=== PATIENT | female | born 1960 | race Caucasian/White ===

== ENCOUNTER 2017-02-26 19:48 | Emergency (ER) | payer OTHER ==
[~2017-02-26] VITALS: Ht 154.9 cm; Wt 90.7 kg
[~2017-02-26 19:48] MED LIST: AMOXICILLIN500 M2 PO; CILOXAN 5 ML5 ML OT; DARVOCET N 1001 TAB PO; LEVOFLOXACIN500 MG PO; MOTRIN800 MG PO; PERCOCET 325 MG1 TA7 PO; SYNTHROID0.125 MG PO; ULTRAM100 MG PO; ZYRTEC10 MG PO
[2017-02-26 20:00] VITALS: BP 135/73
[2017-02-26] MEDS ORDERED: ANAPROX DS550 MG PO (20:10)
== END 2017-02-26 20:34 | disposition home or self-care (01) ==
LOC: ED 19:48
DX: S80.01XA Contusion of right knee, initial encounter (principal); M13.862 Other specified arthritis, left knee; M13.861 Other specified arthritis, right knee; F17.200 Nicotine dependence, unspecified, uncomplicated; Z79.899 Other long term (current) drug therapy; V49.59XA Passenger injured in collision with other motor vehicles in traffic accident, initial encounter; Y93.89 Activity, other specified; Y92.413 State road as the place of occurrence of the external cause; Y99.8 Other external cause status

== ENCOUNTER 2017-12-12 17:19 | Emergency (ER) | payer OTHER ==
[~2017-12-12] VITALS: Ht 154.9 cm; Wt 99.8 kg
[~2017-12-12 17:19] MED LIST changes: +ANAPROX DS550 MG PO
[2017-12-12 17:25] VITALS: BP 130/75
[2017-12-12] MEDS ORDERED: MEDROL DOSEPAK4 MG PO (19:13)
== END 2017-12-12 19:15 | disposition home or self-care (01) ==
LOC: ED 17:19
DX: M25.512 Pain in left shoulder (principal); Z98.51 Tubal ligation status; Z90.710 Acquired absence of both cervix and uterus; Z79.899 Other long term (current) drug therapy

== ENCOUNTER → 2019-01-23 | Outpatient (CLI) | payer OTHER ==
[~2019-01-23] MED LIST changes: +MEDROL DOSEPAK4 MG PO
[2019-01-23 09:07] LABS: BASO # 0.1 10*3/uL (0.0-0.1); BASO % 1.1 % (0.0-1.0); EOS # 0.3 10*3/uL (0.0-0.4); EOS % 3.1 % (1.0-4.0); HEMATOCRIT 46.6 % (37.0-47.0); HEMOGLOBIN 15.2 g/dl (12.0-16.0); LYMPH # 2.9 10*3/uL (1.3-4.4); LYMPH % 27.3 % (27.0-41.0); MEAN CELL VOLUME 92.3 fl (81.0-99.0); MEAN CORPUSCULAR HGB 30.1 pg (27.0-31.0); MEAN CORPUSCULAR HGB CONC 32.6 g/dl (33.0-37.0); MEAN PLATELET VOLUME 9.8 fl (9.6-12.3); MONO # 0.6 10*3/uL (0.1-1.0); MONO % 5.4 % (3.0-9.0); NEUT # 6.6 10*3/uL (2.3-7.9); NEUT % 62.7 % (47.0-73.0); PLATELET COUNT AUTOMATED 308 10*3/uL (130-400); RED BLOOD COUNT 5.05 10*6/uL (4.10-5.10); RED CELL DISTRI WIDTH 13.8 % (0-14.5); WHITE BLOOD COUNT 10.5 10*3/uL (4.8-10.8)
[2019-01-23 09:36] LABS: ALBUMIN 3.5 gm/dl (3.1-4.5); BUN 16 mg/dl (7-24); CHLORIDE 106 mmol/L (98-107); POTASSIUM 4.2 mmol/L (3.5-5.1); SODIUM 141 mmol/L (136-145)
[2019-01-23 09:43] LABS: ALKALINE PHOSPHATASE 69 U/L (45-117); CHOLESTEROL 253 mg/dL (<200); CREATININE 0.92 mg/dL (0.55-1.02); FREE T4 0.68 ng/dl (0.76-1.46); HDL CHOLESTEROL 51 mg/dl (40-60); LDL CHOLESTEROL 167 mg/dL (9-159); SGOT/AST 13 IU/L (3-35); SGPT/ALT 19 U/L (12-78); TOTAL PROTEIN 7.3 gm/dL (6.4-8.2); TRIGLYCERIDES 176 mg/dl (<150); VLDL CHOLESTEROL 35 mg/dL (6-40)
[2019-01-23 10:33] LABS: VITAMIN D, 25-HYDROXY 22.9 ng/mL (30-100)
== END | disposition home or self-care (01) ==
LOC: LAB 08:33
PROVIDERS: Internal Medicine
DX: Z13.220 Encounter for screening for lipoid disorders (principal); Z13.21 Encounter for screening for nutritional disorder; E78.2 Mixed hyperlipidemia; E11.65 Type 2 diabetes mellitus with hyperglycemia; E03.9 Hypothyroidism, unspecified; E55.9 Vitamin D deficiency, unspecified

== ENCOUNTER 2019-06-14 18:35 | Emergency (ER) | payer OTHER ==
[~2019-06-14] VITALS: Ht 154.9 cm; Wt 99.8 kg
[2019-06-14 18:38] VITALS: BP 122/40
[2019-06-14 19:15] LABS: BASO # 0.1 10*3/uL (0.0-0.1); EOS # 0.4 10*3/uL (0.0-0.4); EOS % 4.1 % (1.0-4.0); HEMATOCRIT 43.8 % (37.0-47.0); HEMOGLOBIN 14.3 g/dl (12.0-16.0); LYMPH # 3.2 10*3/uL (1.3-4.4); LYMPH % 30.6 % (27.0-41.0); MEAN CELL VOLUME 92.2 fl (81.0-99.0); MEAN CORPUSCULAR HGB 30.1 pg (27.0-31.0); MEAN CORPUSCULAR HGB CONC 32.6 g/dl (33.0-37.0); MEAN PLATELET VOLUME 9.9 fl (9.6-12.3); MONO # 0.6 10*3/uL (0.1-1.0); NEUT % 57.8 % (47.0-73.0); PLATELET COUNT AUTOMATED 296 10*3/uL (130-400); RED BLOOD COUNT 4.75 10*6/uL (4.10-5.10); RED CELL DISTRI WIDTH 14.3 % (0-14.5); WHITE BLOOD COUNT 10.3 10*3/uL (4.8-10.8)
[2019-06-14 19:31] LABS: ALBUMIN 3.3 gm/dl (3.1-4.5); ALKALINE PHOSPHATASE 61 U/L (45-117); BUN 15 mg/dl (7-24); CHLORIDE 106 mmol/L (98-107); CREATININE 0.96 mg/dL (0.55-1.02); SGOT/AST 13 IU/L (3-35); SGPT/ALT 11 U/L (12-78); SODIUM 139 mmol/L (136-145); TOTAL PROTEIN 7.3 gm/dL (6.4-8.2)
== END 2019-06-14 20:31 | disposition home or self-care (01) ==
LOC: ED 18:35
PROVIDERS: Nurse Practitioner Family
DX: M25.561 Pain in right knee (principal); E03.9 Hypothyroidism, unspecified; M19.90 Unspecified osteoarthritis, unspecified site; F17.200 Nicotine dependence, unspecified, uncomplicated; Z79.899 Other long term (current) drug therapy; X50.1XXA Overexertion from prolonged static or awkward postures, initial encounter; Y93.89 Activity, other specified; Y92.89 Other specified places as the place of occurrence of the external cause; Y99.8 Other external cause status

== ENCOUNTER → 2020-12-04 | Outpatient (CLI) | payer OTHER ==
[2020-12-04 14:02] LABS: BASO # 0.1 10*3/uL (0.0-0.1); BASO % 1.2 % (0.0-1.0); EOS # 0.4 10*3/uL (0.0-0.4); EOS % 3.6 % (1.0-4.0); HEMATOCRIT 47.4 % (37.0-47.0); LYMPH % 26.2 % (27.0-41.0); MEAN CELL VOLUME 90.1 fl (81.0-99.0); MEAN CORPUSCULAR HGB 29.1 pg (27.0-31.0); MEAN CORPUSCULAR HGB CONC 32.3 g/dl (33.0-37.0); MEAN PLATELET VOLUME 9.7 fl (9.6-12.3); MONO # 0.6 10*3/uL (0.1-1.0); MONO % 5.6 % (3.0-9.0); NEUT # 7.1 10*3/uL (2.3-7.9); NEUT % 62.9 % (47.0-73.0); PLATELET COUNT AUTOMATED 338 10*3/uL (130-400); RED BLOOD COUNT 5.26 10*6/uL (4.10-5.10); RED CELL DISTRI WIDTH 14.2 % (0-14.5); WHITE BLOOD COUNT 11.2 10*3/uL (4.8-10.8)
[2020-12-04 14:19] LABS: ALBUMIN 3.2 gm/dl (3.1-4.5); ALKALINE PHOSPHATASE 74 U/L (45-117); BUN 16 mg/dl (7-24); CHLORIDE 107 mmol/L (98-107); CHOLESTEROL 226 mg/dL (<200); CREATININE 0.98 mg/dL (0.55-1.02); HDL CHOLESTEROL 48 mg/dl (40-60); LDL CHOLESTEROL 134 mg/dL (9-159); POTASSIUM 4.4 mmol/L (3.5-5.1); SGOT/AST 12 IU/L (3-35); SGPT/ALT 16 U/L (12-78); SODIUM 140 mmol/L (136-145); TOTAL PROTEIN 7.2 gm/dL (6.4-8.2); TRIGLYCERIDES 222 mg/dl (<150); VLDL CHOLESTEROL 44 mg/dL (6-40)
[2020-12-04 14:21] LABS: FREE T4 0.65 ng/dl (0.76-1.46)
[2020-12-04 16:10] LABS: VITAMIN D, 25-HYDROXY 11.2 ng/mL (30-100)
== END | disposition home or self-care (01) ==
LOC: LAB 13:32
PROVIDERS: ATTEND Internal Medicine
DX: Z00.00 Encounter for general adult medical examination without abnormal findings (principal); E11.65 Type 2 diabetes mellitus with hyperglycemia; R53.83 Other fatigue; E55.9 Vitamin D deficiency, unspecified; E03.9 Hypothyroidism, unspecified; I10 Essential (primary) hypertension; E78.2 Mixed hyperlipidemia

== ENCOUNTER → 2020-12-11 | Outpatient (CLI) | payer OTHER | END | disposition home or self-care (01) | LOC: CARD 00:11 | PROVIDERS: ATTEND Internal Medicine | DX: I51.7 Cardiomegaly (principal) ==

== ENCOUNTER 2021-05-08 12:18 | Emergency (ER) | payer OTHER ==
[~2021-05-08] VITALS: Ht 154.9 cm; Wt 113.4 kg
[2021-05-08 12:48] VITALS: BP 119/67
[2021-05-08 13:16] LABS: BASO # 0.1 10*3/uL (0.0-0.1); BASO % 0.6 % (0.0-1.0); EOS # 0.2 10*3/uL (0.0-0.4); EOS % 1.7 % (1.0-4.0); HEMATOCRIT 47.1 % (37.0-47.0); LYMPH # 1.8 10*3/uL (1.3-4.4); LYMPH % 20.9 % (27.0-41.0); MEAN CELL VOLUME 90.2 fl (81.0-99.0); MEAN CORPUSCULAR HGB 28.7 pg (27.0-31.0); MEAN CORPUSCULAR HGB CONC 31.8 g/dl (33.0-37.0); MEAN PLATELET VOLUME 9.6 fl (9.6-12.3); MONO # 0.6 10*3/uL (0.1-1.0); MONO % 6.9 % (3.0-9.0); NEUT # 5.9 10*3/uL (2.3-7.9); NEUT % 68.9 % (47.0-73.0); PLATELET COUNT AUTOMATED 242 10*3/uL (130-400); RED BLOOD COUNT 5.22 10*6/uL (4.10-5.10); RED CELL DISTRI WIDTH 14.2 % (0-14.5); WHITE BLOOD COUNT 8.6 10*3/uL (4.8-10.8)
[2021-05-08 13:32] LABS: ALBUMIN 3.3 gm/dl (3.1-4.5); ALKALINE PHOSPHATASE 70 U/L (45-117); BUN 10 mg/dl (7-24); CHLORIDE 105 mmol/L (98-107); CREATININE 0.96 mg/dL (0.55-1.02); POTASSIUM 4.1 mmol/L (3.5-5.1); SGOT/AST 21 IU/L (3-35); SGPT/ALT 24 U/L (12-78); SODIUM 138 mmol/L (136-145); TOTAL PROTEIN 7.4 gm/dL (6.4-8.2)
[2021-05-08] MEDS ORDERED: DOXYCYCLINE100 M3 PO (14:28)
== END 2021-05-08 14:32 | disposition home or self-care (01) ==
LOC: ED 12:18
PROVIDERS: Student in an Organized Health Care Education/Training Program
DX: U07.1 COVID-19 (principal); J44.1 Chronic obstructive pulmonary disease with (acute) exacerbation; J32.9 Chronic sinusitis, unspecified; Z79.899 Other long term (current) drug therapy

== ENCOUNTER 2022-01-16 17:52 | Inpatient (IN) | payer OTHER ==
[~2022-01-16] VITALS: Ht 154.9 cm; Wt 115.8 kg
[~2022-01-16 17:52] MED LIST changes: +DOXYCYCLINE100 M3 PO
[2022-01-16 17:57] VITALS: BP 113/64
[2022-01-16 18:23] LABS: BASO # 0.1 10*3/uL (0.0-0.1); EOS # 0.3 10*3/uL (0.0-0.4); EOS % 3.5 % (1.0-4.0); LYMPH # 3.2 10*3/uL (1.3-4.4); LYMPH % 32.2 % (27.0-41.0); MEAN CELL VOLUME 89.3 fl (81.0-99.0); MEAN CORPUSCULAR HGB CONC 32.4 g/dl (33.0-37.0); MEAN PLATELET VOLUME 9.7 fl (9.6-12.3); MONO # 0.8 10*3/uL (0.1-1.0); MONO % 8.1 % (3.0-9.0); NEUT # 5.3 10*3/uL (2.3-7.9); NEUT % 54.6 % (47.0-73.0); PLATELET COUNT AUTOMATED 313 10*3/uL (130-400); RED BLOOD COUNT 5.04 10*6/uL (4.10-5.10); WHITE BLOOD COUNT 9.8 10*3/uL (4.8-10.8)
[2022-01-16 18:39] LABS: ALKALINE PHOSPHATASE 74 U/L (45-117); BUN 15 mg/dl (7-24); CHLORIDE 105 mmol/L (98-107); CREATININE 0.91 mg/dL (0.55-1.02); POTASSIUM 4.6 mmol/L (3.5-5.1); SGOT/AST 15 IU/L (3-35); SGPT/ALT 16 U/L (12-78); SODIUM 139 mmol/L (136-145); TOTAL PROTEIN 6.9 gm/dL (6.4-8.2)
[2022-01-16 19:32] VITALS: BP 126/64
[2022-01-16 20:40] VITALS: BP 128/67
[2022-01-16 21:10] LABS: BILIRUBIN Negative (Negative); BLOOD Negative (Negative); CLARITY Clear (Clear); COLOR Yellow (Yellow); GLUCOSE Negative (Negative); KETONE Negative (Negative); LEUKO ESTERASE Negative (Negative); NITRITE Negative (Negative); PH 5.5 (4.5-8.0); UROBILINOGEN 0.2 E.U./dl (0.0-1.0)
[2022-01-16 21:23] LABS: RBC 0-2 rbc/hpf (0-2); WBC 0-2 wbc/hpf (0-5)
[2022-01-16 23:17] VITALS: BP 133/75
[2022-01-17] VITALS: BP 133/75
[2022-01-17 08:00] VITALS: BP 96/48; BP 98/48
[2022-01-17 12:00] VITALS: BP 118/68
[2022-01-17 16:00] VITALS: BP 110/68
[2022-01-17 20:00] VITALS: BP 112/48
[2022-01-18] VITALS: BP 102/52
[2022-01-18 08:00] VITALS: BP 123/62
[2022-01-18] MEDS ORDERED: MECLIZINE HCL25 M2 PO (11:13)
== END 2022-01-18 15:00 | disposition home or self-care (01) | DRG 149 ==
LOC: ED 17:52 → 4E 23:00 → EDHOLD 23:00 → 4E 23:00
PROVIDERS: Emergency Medicine; Student in an Organized Health Care Education/Training Program; ADMIT Internal Medicine; ATTEND Internal Medicine
DX: H81.12 Benign paroxysmal vertigo, left ear (principal); Z68.42 Body mass index [BMI] 45.0-49.9, adult; E66.01 Morbid (severe) obesity due to excess calories; F41.1 Generalized anxiety disorder; E03.9 Hypothyroidism, unspecified; J43.2 Centrilobular emphysema; R26.81 Unsteadiness on feet; Z90.710 Acquired absence of both cervix and uterus; Z90.721 Acquired absence of ovaries, unilateral

== ENCOUNTER 2022-10-18 13:01 | Emergency (ER) | payer OTHER ==
[~2022-10-18] VITALS: Wt 102.1 kg
[~2022-10-18 13:01] MED LIST changes: +MECLIZINE HCL25 M2 PO
[2022-10-18 13:48] LABS: BASO # 0.1 10*3/uL (0.0-0.1); BASO % 0.8 % (0.0-1.0); EOS # 0.3 10*3/uL (0.0-0.4); EOS % 2.9 % (1.0-4.0); HEMATOCRIT 47.4 % (37.0-47.0); LYMPH # 1.9 10*3/uL (1.3-4.4); LYMPH % 17.3 % (27.0-41.0); MEAN CELL VOLUME 91.2 fl (81.0-99.0); MEAN CORPUSCULAR HGB 28.7 pg (27.0-31.0); MEAN CORPUSCULAR HGB CONC 31.4 g/dl (33.0-37.0); MEAN PLATELET VOLUME 9.8 fl (9.6-12.3); MONO # 0.6 10*3/uL (0.1-1.0); MONO % 5.4 % (3.0-9.0); NEUT # 8.1 10*3/uL (2.3-7.9); NEUT % 73.1 % (47.0-73.0); PLATELET COUNT AUTOMATED 303 10*3/uL (130-400); RED CELL DISTRI WIDTH 14.2 % (0-14.5)
[2022-10-18 14:03] LABS: ALKALINE PHOSPHATASE 73 U/L (46-116); BUN 12 mg/dl (9-23); CHLORIDE 101 mmol/L (98-107); POTASSIUM 4.3 mmol/L (3.4-5.1); SGPT/ALT 13 U/L (10-49); TOTAL PROTEIN 6.7 gm/dL (6.0-8.0)
[2022-10-18 15:22] VITALS: BP 109/49
[2022-10-18] MEDS ORDERED: MEDI-MECLIZINE25 MG PO (21:59)
== END 2022-10-18 22:06 | disposition home or self-care (01) ==
LOC: ED 13:01
PROVIDERS: Student in an Organized Health Care Education/Training Program
DX: R42 Dizziness and giddiness (principal); Z98.51 Tubal ligation status; Z90.89 Acquired absence of other organs; Z90.710 Acquired absence of both cervix and uterus; Z98.890 Other specified postprocedural states

== ENCOUNTER 2023-02-17 15:35 | Inpatient (IN) | payer OTHER, MEDICAID ==
[~2023-02-17] VITALS: Ht 154.9 cm; Wt 122.0 kg
[2023-02-17 15:35] VITALS: BP 93/53
[~2023-02-17 15:35] MED LIST changes: +MEDI-MECLIZINE25 MG PO
[2023-02-17 15:49] VITALS: BP 100/47
[2023-02-17] MEDS ORDERED: SYNTHROID,LEV125 MCG PO (15:53)
[2023-02-17 16:38] LABS: BASO # 0.1 10*3/uL (0.0-0.1); BASO % 1.1 % (0.0-1.0); EOS # 0.3 10*3/uL (0.0-0.4); EOS % 2.9 % (1.0-4.0); HEMATOCRIT 45.7 % (37.0-47.0); LYMPH # 2.2 10*3/uL (1.3-4.4); LYMPH % 23.8 % (27.0-41.0); MEAN CELL VOLUME 89.4 fl (81.0-99.0); MEAN CORPUSCULAR HGB 28.6 pg (27.0-31.0); MEAN CORPUSCULAR HGB CONC 31.9 g/dl (33.0-37.0); MEAN PLATELET VOLUME 9.5 fl (9.6-12.3); MONO # 0.5 10*3/uL (0.1-1.0); MONO % 5.2 % (3.0-9.0); NEUT # 6.1 10*3/uL (2.3-7.9); NEUT % 66.7 % (47.0-73.0); PLATELET COUNT AUTOMATED 327 10*3/uL (130-400); RED BLOOD COUNT 5.11 10*6/uL (4.10-5.10); RED CELL DISTRI WIDTH 14.1 % (0-14.5); WHITE BLOOD COUNT 9.1 10*3/uL (4.8-10.8)
[2023-02-17 17:13] LABS: ALKALINE PHOSPHATASE 72 U/L (46-116); BUN 10 mg/dl (9-23); CHLORIDE 105 mmol/L (98-107); POTASSIUM 4.1 mmol/L (3.4-5.1); SGPT/ALT 10 U/L (10-49); TOTAL PROTEIN 6.4 gm/dL (6.0-8.0)
[2023-02-17 19:33] VITALS: BP 97/45
[2023-02-17 22:30] VITALS: BP 122/53
[2023-02-18 06:12] LABS: FREE T4 0.74 ng/dl (0.89-1.76); THYROID STIM HORMONE (HS) 8.281 uIU/ml (0.550-4.780)
[2023-02-18 08:00] VITALS: BP 122/70
[2023-02-18 12:00] VITALS: BP 133/57
[2023-02-18 16:00] VITALS: BP 147/78
[2023-02-18 20:00] VITALS: BP 132/58
[2023-02-19] VITALS: BP 133/56
[2023-02-19] MEDS ORDERED: NICOTROL10 MG INH (07:04)
[2023-02-19] MEDS ORDERED: LEVOTHYROXINE125 MCG PO (07:04)
[2023-02-19] MEDS ORDERED: ATORVASTATIN CA20 M1 PO (07:04)
[2023-02-19] MEDS ORDERED: ASPIRIN CHILDRE81 MG PO (07:04)
[2023-02-19 08:00] VITALS: BP 125/67
== END 2023-02-19 17:05 | disposition home or self-care (01) | DRG 309 ==
LOC: ED 15:35 → 4E 18:26 → EDHOLD 18:26 → 4E 22:01
PROVIDERS: Internal Medicine; ADMIT Internal Medicine; ATTEND Internal Medicine
DX: I47.1 Supraventricular tachycardia (principal); E44.1 Mild protein-calorie malnutrition; Z68.43 Body mass index [BMI] 50.0-59.9, adult; I44.1 Atrioventricular block, second degree; E66.01 Morbid (severe) obesity due to excess calories; E03.9 Hypothyroidism, unspecified; G47.33 Obstructive sleep apnea (adult) (pediatric); F17.210 Nicotine dependence, cigarettes, uncomplicated; J44.9 Chronic obstructive pulmonary disease, unspecified; F41.1 Generalized anxiety disorder; Z71.6 Tobacco abuse counseling

== ENCOUNTER 2023-02-26 16:04 | Emergency (ER) | payer MEDICAID ==
[~2023-02-26] VITALS: Ht 12.7 cm; Wt 113.4 kg
[~2023-02-26 16:04] MED LIST changes: +ASPIRIN CHILDRE81 MG PO; +ATORVASTATIN CA20 M1 PO; +LEVOTHYROXINE125 MCG PO; +NICOTROL10 MG INH; +SYNTHROID,LEV125 MCG PO
[2023-02-26] MEDS ORDERED: PROVENTIL HFA6.7 GM INH (18:42)
[2023-02-26] MEDS ORDERED: PREDNISONE50 MG PO (18:42)
[2023-02-26 18:58] VITALS: BP 122/58
== END 2023-02-26 19:07 | disposition home or self-care (01) ==
LOC: ED 16:04
DX: I49.9 Cardiac arrhythmia, unspecified (principal); M19.90 Unspecified osteoarthritis, unspecified site; J44.9 Chronic obstructive pulmonary disease, unspecified; F41.9 Anxiety disorder, unspecified; Z90.710 Acquired absence of both cervix and uterus; Z98.51 Tubal ligation status; Z98.890 Other specified postprocedural states

== ENCOUNTER 2023-10-17 13:01 | Emergency (ER) | payer OTHER, MEDICAID ==
[~2023-10-17] VITALS: Ht 154.9 cm; Wt 113.4 kg
[~2023-10-17 13:01] MED LIST changes: +PREDNISONE50 MG PO; +PROVENTIL HFA6.7 GM INH
[2023-10-17 13:10] VITALS: BP 125/63
[2023-10-17] MEDS ORDERED: TOPROL XL25 MG PO (13:20)
[2023-10-17] MEDS ORDERED: CEPHALEXIN500 M1 PO (14:15)
== END 2023-10-17 14:36 | disposition home or self-care (01) ==
LOC: ED 13:01
DX: L03.115 Cellulitis of right lower limb (principal); M19.90 Unspecified osteoarthritis, unspecified site; J44.9 Chronic obstructive pulmonary disease, unspecified; F41.9 Anxiety disorder, unspecified; Z98.51 Tubal ligation status; Z90.710 Acquired absence of both cervix and uterus; Z98.890 Other specified postprocedural states; Z87.891 Personal history of nicotine dependence

== ENCOUNTER → 2024-01-16 | Outpatient (CLI) | payer OTHER, MEDICAID ==
[~2024-01-16] MED LIST changes: +CEPHALEXIN500 M1 PO; +TOPROL XL25 MG PO
== END | disposition home or self-care (01) ==
LOC: US 07:59
PROVIDERS: ATTEND Physician Assistant
DX: K76.0 Fatty (change of) liver, not elsewhere classified (principal); K80.20 Calculus of gallbladder without cholecystitis without obstruction; R10.11 Right upper quadrant pain; F17.210 Nicotine dependence, cigarettes, uncomplicated

== ENCOUNTER → 2024-07-25 | Outpatient (CLI) | payer OTHER, MEDICAID | END | disposition home or self-care (01) | LOC: CARD 10:16 | PROVIDERS: ATTEND Nurse Practitioner Adult Health | DX: I51.7 Cardiomegaly (principal); R06.02 Shortness of breath; Z95.0 Presence of cardiac pacemaker ==